=== PATIENT | female | born 1995 | race Caucasian/White ===

== ENCOUNTER 2018-11-30 14:11 | Emergency (ER) | payer OTHER ==
[~2018-11-30] VITALS: Ht 175.3 cm; Wt 99.8 kg
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
--- NOTE | 2018-11-30 14:20 | NUR ---
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
[2018-11-30 14:22] VITALS: BP 120/61
--- NOTE | 2018-11-30 14:22 | NUR ---
Patient ambulated to bed 2. RN evaluating patient at bedside.
--- NOTE | 2018-11-30 14:45 | NUR ---
KISHA OLIVEIRA AT BEDSIDE
--- NOTE | 2018-11-30 15:00 | NUR ---
Patient taken to CT scan by
--- NOTE | 2018-11-30 15:21 | NUR ---
Patient returned from CT scan. RN re-evaluating patient at bedside.
[2018-11-30 15:49] VITALS: BP 128/72
--- NOTE | 2018-11-30 15:49 | NUR ---
Patient discharged with v/s stable. Written and verbal after care instructions given and explained. Patient alert, oriented and verbalized understanding of instructions. Ambulatory with steady gait. All questions addressed prior to discharge. ID band removed. Patient advised to follow up with PMD. Rx of IBUPRPFEN 600MG AND TYLENOL 500MG given. Patient educated on indication of medication including possible reaction and side effects. Opportunity to ask questions provided and answered.
== END 2018-11-30 15:49 | disposition home or self-care (01) ==
LOC: MED 14:11
DX: S00.83XA Contusion of other part of head, initial encounter (principal); M26.69 Other specified disorders of temporomandibular joint; F17.210 Nicotine dependence, cigarettes, uncomplicated; Y04.2XXA Assault by strike against or bumped into by another person, initial encounter; Y93.89 Activity, other specified; Y92.89 Other specified places as the place of occurrence of the external cause; Y99.8 Other external cause status
CPT/HCPCS: 70110; 70450; 81002; 81025; 99284